=== PATIENT | male | born 1990 | race Caucasian/White ===

== ENCOUNTER 2022-02-07 11:35 | Emergency (ER) | payer OTHER ==
[~2022-02-07 11:35] MED LIST: MEDROL 4MG DOSEP4 MG PO; OTC NASAL SPRAY; PRILOSEC20 MG PO; VENTOLIN HFA IN18 GM INH
[2022-02-07] MEDS ORDERED: AMOX TR-K CLV1 EAC4 PO (13:02)
== END 2022-02-07 13:06 | disposition home or self-care (01) ==
LOC: FER 11:35
DX: S61.452A Open bite of left hand, initial encounter (principal); W55.01XA Bitten by cat, initial encounter
CPT/HCPCS: 99283